=== PATIENT | female | born 1970 | race Caucasian/White ===

== ENCOUNTER → 2023-03-24 10:01 | Outpatient (CLI) | payer BC, SELFPAY ==
--- NOTE | 2023-03-24 10:13 | US_ITS ---
PROCEDURE: US TRANSVAGINAL CLINICAL INDICATION: postmenopausal bleeding COMPARISON: No exams were available for comparison FINDINGS: Transvaginal sonographic images of the pelvis were obtained. UTERUS: 10.0 cm x 7.3 cmx 5.4 cm with a combined endometrial thickness of 9.2mm. There are multiple nabothian cysts within the cervix. There are at least 14 separate cysts. The largest measures 1.1 cm. A large fundal fibroid is seen with degenerative changes. It measures 5.0 cm x 4.6 cm by 5.5 cm. There is a smaller fibroid on the right side of the uterus measuring 1.7 cm x 1.3 cm x 1. 8 cm. LEFT OVARY: 2.6 cm x1.4 cmx1.1cm with a volume of 2ml. RIGHT OVARY: 3.9 cmx 3.8 cmx3.1 cm with a volume of 24.2ml. There is a follicle measuring 3.0 cm x 1.2 cm x 2.7 cm. There is trace fluid around the right ovary. Both ovaries are seen and appear normal. Doppler flow to both ovaries are seen. There is no fluid in the cul-de-sac. IMPRESSION: 1. Uterus is anteverted and enlarged with a fibroid. The fibroid measures 5.5 cm. There is a 2nd small right-sided fibroid measuring 1.8 cm. 2. Both ovaries are seen and appear normal. There is a 3.0 cm follicle in the right ovary. 3. No fluid in the cul-de-sac but a small amount of fluid around the right ovary. Dictated by: Riki Lyn MD 03/24/2023 13:18 Riki Lyn MD in OV 03/24/2023 13:18
== END ==
PROVIDERS: PCP Family Medicine; Visit Provider Obstetrics & Gynecology
DX: N95.0 Postmenopausal bleeding (principal)
CPT/HCPCS: 76830

== ENCOUNTER → 2023-04-05 15:49 | Outpatient (CLI) | payer BC, SELFPAY ==
[2023-04-05 16:58] LABS: Alanine Aminotransferase 36 U/L (12-78); Albumin Level 4.6 g/dl (3.5-5.0); Albumin/Globulin Ratio 1.4 (1.1-1.8); Alkaline Phosphatase 65 U/L (38-126); Anion Gap 11.7 mEq/L (5-15); Aspartate Amino Transferase 39 U/L (14-36); Bilirubin,Total 0.5 mg/dl (0.2-1.3); Blood Urea Nitrogen 12 mg/dl (7-17); Calcium 9.3 mg/dl (8.4-10.2); Carbon Dioxide 27 mmol/L (22.0-30.0); Chloride 101 mmol/L (98-107); Estimated Glomerular Filt Rate 66 ml/min (>60); GFR (African American) 80 ML/MIN (>60); Globulin 3.4 g/dL (1.3-3.2); Glucose 86 mg/dl (74-100); Potassium 3.7 mmoL/L (3.5-5.1); Sodium 136 mmol/L (136-145)
[2023-04-05 17:12] LABS: Basophils % 0.4 % (0.1-2.0); Eosinophils # 0.3 K/mm3 (0.0-0.4); Eosinophils % 3.8 % (0.1-12.0); Hematocrit 43.4 % (37.0-47.0); Lymphocytes # 1.8 K/mm3 (0.7-4.5); Lymphocytes % 21.5 % (10-50); Mean Corpuscular HGB Conc 34.5 g/dL (31.8-35.4); Mean Corpuscular Hemoglobin 30.7 pg (27.0-31.2); Mean Platelet Volume 8.2 fl (7.4-10.4); Monocytes # 0.5 K/mm3 (0.1-1.0); Monocytes % 6.2 % (1.7-9.3); Neutrophils # 5.6 K/mm3 (1.8-7.8); Neutrophils % 68.2 % (37.0-80.0); Platelet Count 266 K/mm3 (142-424); Red Blood Count 4.88 M/mm3 (4.20-5.40); Red Cell Distribution Width 14.1 % (11.5-17.5); White Blood Count 8.3 K/mm3 (4.8-10.8)
[2023-04-05 17:19] LABS: HCG,Quantitative < 2 mIU/ml (0-5.42)
== END ==
PROVIDERS: PCP Family Medicine; Visit Provider Obstetrics & Gynecology
DX: N95.0 Postmenopausal bleeding (principal)
CPT/HCPCS: 36415; 80053; 84702; 85025

== ENCOUNTER 2023-04-07 10:08 | Day surgery (SDC) | payer BC, SELFPAY ==
[2023-04-05 16:38] VITALS: BMI 29.7
[2023-04-07] VITALS (7 sets, daily range): BP systolic 107–134; BP diastolic 65–84; PULSE 73–95; RESP 16–19; TEMP 36.1–36.8; O2SAT 92–100
--- NOTE | 2023-04-07 12:02 | EXP.ANES.CKL ---
[facility] Disclaimer: The information contained in this section may have been updated after the patient was seen, as this information can be updated by other users. Medical History Hx of fracture of nose Hx of viral meningitis Surgical History Hx of breast augmentation Hx of hernia repair Hx of prior ablation treatment Family History Mother Thyroid disorder Social History Smoking Status: Never smoker alcohol intake: never substance use type: denies use current occupational status: employed Travel in the last 8 weeks: None [facility] Anesthesia Checklist Patient Identification Patient Identification: Arm Band and Verbal (Name & ) Structural Data Admitted From: Home Planned Operative Procedure/s: Hyst/D & C Consent for Planned Operative Procedure(s) Verified: Yes NPO Status Verified Time NPO: 00:00 Additional verifications Anesthesia Reactions: No Hx Blood Transfusions: No Blood Transfusion Reaction: No Airway Assessment Mallampati Score:: Class I C-Spine Mobility Assessed: Yes TMJ Mobility Assessed: Yes Dentition: Good Dentition Neurological Assessment Level of Consciousness: Awake Hx Seizures: No Numbness or tingling in extremities: No Anesthesia Plan Anesthesia Risk discussed: Yes Anesthesia Plan: Verified ASA Class: I Anesthesia Type: MAC
--- NOTE | 2023-04-07 13:11 | EXP.OP.NOTE ---
Date of procedure: 04/07/23 Pre-op Diagnosis:: 1. Postmenopausal bleeding 2. Fibroid uterus 3. Thickened endometrial stripe Post-op Diagnosis:: 1. Postmenopausal bleeding 2. Fibroid uterus 3. Thickened endometrial stripe Procedure performed:: Hysteroscopy and dilation Surgeon:: Merry Delgadillo DO DECORATING EQUIPMENT SETTER:: Jessa Land Anesthesia: GETA Estimated blood loss (mL): 25 Operative findings:: Findings: -EUA revealed an 10-week anteverted uterus with irregular contour. Grade 3 apical prolapse. No appreciable anterior or posterior compartment prolapse. -Hysteroscopy revealed a very scarred cervical canal secondary to a history of an ablation. Operative note:: The patient was taken back to the OR where general anesthesia was obtained.? She was placed in the dorsal lithotomy position using yellow fin stirrups and sterilely prepped and draped in the usual fashion.? An in and out catheter was used to drain her bladder.? A timeout was performed.? A weighted speculum was used to visualize this cervix, a single-tooth tenaculum was applied to the anterior lip of the cervix. The cervix was dilated to allow entry to the ectocervix and hydrodisection was used to get the scope the rest of the way into the passage. The hysterscope was inserted but the uterine cavity assess was not obtained. I moved the single-tooth tenaculum to the posterior lip of the cervix. I again attempted to dilate the cervical os. Hysteroscope was reinserted and it was suspected that a false passage was made. The hysteroscope was removed and the cervical os was visualized and noted to be hemostatic. There was however bleeding on the posterior lip of the ectocervix. Pressure and chemical cautery were attempted and the area continues to bleed. This was made hemostatic with a [id number] 0 Vicryl. At the conclusion of the procedure there was a fluid deficit of 1200mLs. However there was copious amounts of fluid that was under the patient's bottom and soaking through the table as well as on the floor. All instruments were removed from the vagina.? All counts were correct, per nursing.? This concluded the procedure, the patient was awakened from anesthesia, and transferred to the PACU in stable condition. Patient will follow-up in 1 week to discuss options on how to proceed. Condition: stable Disposition: PACU Specimens:: None Complications:: None
== END 2023-04-07 13:41 | disposition home or self-care (01) ==
PROVIDERS: PCP Family Medicine; Visit Provider Obstetrics & Gynecology
PROC: (CPT 58558; principal; 2023-04-07 11:45)
DX: N95.0 Postmenopausal bleeding (principal); D25.9 Leiomyoma of uterus, unspecified; N81.3 Complete uterovaginal prolapse; T88.8XXA Other specified complications of surgical and medical care, not elsewhere classified, initial encounter
CPT/HCPCS: 58558; 96374

== ENCOUNTER 2023-05-26 16:31 | Outpatient (CLI) | payer BC, SELFPAY ==
[2023-05-26 16:59] LABS: Basophils # 0.1 K/mm3 (0-0.2); Eosinophils # 0.4 K/mm3 (0.0-0.4); Hematocrit 45.4 % (37.0-47.0); Hemoglobin 15.3 g/dL (12.2-16.2); Lymphocytes # 1.7 K/mm3 (0.7-4.5); Lymphocytes % 20.9 % (10-50); Mean Corpuscular HGB Conc 33.8 g/dL (31.8-35.4); Mean Corpuscular Hemoglobin 30.7 pg (27.0-31.2); Mean Corpuscular Volume 90.8 fl (81-99); Mean Platelet Volume 8.1 fl (7.4-10.4); Monocytes # 0.5 K/mm3 (0.1-1.0); Monocytes % 5.6 % (1.7-9.3); Neutrophils # 5.5 K/mm3 (1.8-7.8); Neutrophils % 67.6 % (37.0-80.0); Platelet Count 289 K/mm3 (142-424); White Blood Count 8.1 K/mm3 (4.8-10.8)
[2023-05-26 17:58] LABS: Chloride 100 mmol/L (98-107)
[2023-05-26 17:59] LABS: Sodium 138 mmol/L (136-145)
[2023-05-26 18:01] LABS: Alanine Aminotransferase 41 U/L (12-78); Aspartate Amino Transferase 43 U/L (14-36); Blood Urea Nitrogen 18 mg/dl (7-17); Estimated Glomerular Filt Rate 65 ml/min (>60); GFR (African American) 79 ML/MIN (>60)
[2023-05-26 18:02] LABS: Albumin Level 4.4 g/dl (3.5-5.0); Albumin/Globulin Ratio 1.4 (1.1-1.8); Alkaline Phosphatase 59 U/L (38-126); Bilirubin,Total 0.5 mg/dl (0.2-1.3); Calcium 9.3 mg/dl (8.4-10.2); Carbon Dioxide 30 mmol/L (22.0-30.0); Globulin 3.2 g/dL (1.3-3.2); Glucose 86 mg/dl (74-100); Total Protein,Serum 7.6 g/dl (6.3-8.2)
[2023-05-26 18:20] LABS: HCG,Quantitative < 2 mIU/ml (0-5.42)
== END 2023-05-26 23:59 ==
LOC: LAB 16:32
PROVIDERS: PCP Family Medicine; Visit Provider Obstetrics & Gynecology
DX: N95.0 Postmenopausal bleeding (principal)
CPT/HCPCS: 36415; 80053; 84702; 85025; 86850

== ENCOUNTER 2023-06-01 08:16 | Observation (INO) | payer BC, SELFPAY ==
[2023-06-01] VITALS (23 sets, daily range): BP systolic 95–135; BP diastolic 52–81; PULSE 62–92; RESP 12–20; TEMP 36.2–43; O2SAT 91–99
--- NOTE | 2023-06-01 08:39 | P.PNANES_ITS ---
[facility] Disclaimer: The information contained in this section may have been updated after the patient was seen, as this information can be updated by other users. Medical History Hx of fracture of nose Hx of viral meningitis Surgical History History of hysteroscopy Hx of breast augmentation Hx of hernia repair Hx of prior ablation treatment Family History Mother Thyroid disorder Social History Smoking Status: Never smoker alcohol intake: never substance use type: denies use current occupational status: employed Travel in the last 8 weeks: None [facility] Anesthesia Checklist Patient Identification Patient Identification: Arm Band and Verbal (Name & ) Structural Data Admitted From: Home Planned Operative Procedure/s: Hysterectomy Consent for Planned Operative Procedure(s) Verified: Yes NPO Status Verified Time NPO: 00:00 Chart Verification Results Verified: HCG Additional verifications Anesthesia Reactions: No Hx Blood Transfusions: No Blood Transfusion Reaction: No Airway Assessment Mallampati Score:: Class II C-Spine Mobility Assessed: Yes TMJ Mobility Assessed: Yes Dentition: Good Dentition Neurological Assessment Level of Consciousness: Awake Hx Seizures: No Numbness or tingling in extremities: No Anesthesia Plan Anesthesia Risk discussed: Yes Anesthesia Plan: Verified ASA Class: II Anesthesia Type: General
[2023-06-01] MEDS: LACTATED RINGERS 1000ML 1,000 ML 100 ML IV (08:45)
[2023-06-01] MEDS: CEFAZOLIN SODIUM 1 GM in 0.9 % SODIUM CHLORIDE 50 ML IV (10:08)
[2023-06-01] MEDS: LIDOCAINE 1% W/EPI 1:100,000 20ML VIAL 20 ML (10:51)
[2023-06-01] MEDS: METHYLENE BLUE 0.5% 10ML AMPULE 50 MG IV (10:51)
[2023-06-01] MEDS: BUPIVACAINE 0.5% W/EPI 1:200,000 30ML VIAL 30 ML IJ (10:52)
--- NOTE | 2023-06-01 13:18 | P.OP_ITS ---
Date of procedure: 06/01/23 Pre-op Diagnosis:: 1. Postmenopausal bleeding 2. Fibroid uterus 3. Hysteroscopy D&C 4. History of endometrial ablation Post-op Diagnosis:: 1. Postmenopausal bleeding 2. Fibroid uterus 3. Hysteroscopy D&C 4. History of endometrial ablation Procedure performed:: 1. Laparoscopic assisted vaginal hysterectomy 2. Bilateral salpingo-oophorectomy 3. Sibley culdoplasty 4. Cystoscopy Surgeon:: Merry Delgadillo DO Life Skills Teacher(s):: Riki Lyn MD GROUP EXERCISE CLASS INSTRUCTOR:: Other (Kam Costello) Anesthesia: GETA Estimated blood loss (mL): 100 Operative findings:: Uterine EUA was significant for 8wk size uterus with irregular borders at the fundus. Grade 3 uterine descent was appreciated. No gross adnexal masses were appreciated. Laparoscopic exam revealed normal anatomy.? There was noted to be a large fibroid uterus. No ovarian masses noted. No bowel injuries on entry. Cystoscopy revealed brisk flow from both ureters Operative note:: Pt was taken back to the OR where GETA was obtained without difficulty. SCDs were placed and found to be working. The patient was placed in dorsal lithotomy position using yellow fin stirrups. The vagina and abdomen was prepped and draped in the normal sterile fashion. An in and out catheter was used to drain the bladder and methylene blue was instilled. Weighted speculum was inserted into the vagina to visualize the cervix. A single tooth tenaculum was used to grasp the anterior lip of the cervix and an acorn uterine manipulator was placed. Top gloves were removed and attention was turned to the abdominal portion.? Local anesthetic with epinephrine was injected infraumbilically, an 11mm infraumbilical incision was made sharply. Direct entry into the abdominal cavity was obtained with laparoscopic visualization. A intraabdominal pressure of 6mmHg was observed and CO2 gas was insufflated to create a pneumoperitoneum to a pressure of 15mmHg. The patient was placed in Trendelenburg to facilitate moving the bowel out of the operative field. A second 11mm incision was made to the left, lateral to the rectus muscles with attention to avoid vasculature. Trocar introduced under direct visualization. This process was repeated on the right. Brief abdominal exam revealed normal anatomy as described above. The left fallopian tube was grasped at the fimbriated end. The ureters were visualized bi laterally and noted to be distal from the operative field. The LigaSure coagulation device was inserted and used to clamp, coagulate, and transect the infundibulopelvic ligament. At this time the Ovary was elevated and the ureter was again noted to be distal from the operative field. The mesosalpinx was followed to the round ligament and fulgurated with the Enseal. The round and broad ligament were serially clamped, fulgurated and transected, with attention given to stay proximal to the uterine body. The anterior and posterior leaflet of the broad ligament were and the anterior broad ligament dissection was carried out to complete a bladder flap to the midline. Attention turned to the right adnexa, fimbriated end of the fallopian tube grasped and elevated. Ureter visualized peristalsing and noted to be distal from the operative field. The IP ligament was grasped, coagulated and transected and the process listed above was repeated. The bladder flap was connected in the middle with careful dissection. The bladder flap bilaterally was created sharply with minimal use of electrocautery to avoid bladder injury. The posterior leaflet of the broad ligament was taken down bilaterally and the uterine vessels were skeletonized. The uterines were coagulated multiple times and the uterus was noted to anil. The pedicles were reexamined and noted to be hemostatic. Attention was turned vaginally, a weighted speculum and Wellington retractor were used to identify the cervix. Two Red tenaculums were used to grasp the anterior and posterior lip of the cervix. 20mL of a solution made up of 0.5% Marcaine with epinephrine injected circumferentially around the cervix. Outward traction was applied to the cervix and a scalpel was used to make a circumferential colpotomy at the cervicovaginal junction. The incision was carried down to the paracervical fascia allowing the cervix to separate from the vaginal mucosa.? Pickups and Rodríguez scissors were used to initiate and complete dissection into the posterior colpotomy. A long weighted Vega speculum was placed in the posterior colpotomy. The uterosacral ligaments were grasped with Z clamps, cut and suture ligated bilaterally. These were tagged to be incorporated into the vaginal cuff at a later time. Attention was turned to the anterior edge. Pickups and Metzenbaum scissors were used to initiate and complete dissection into the anterior colpotomy. A Strong retractor was placed in the anterior colpotomy. A Nisha clamp was used to slide off the uterus, remaining proximal, clamp, cut and tied with 0 Vicryl the remaining attachments of the cardinal ligaments along with the lower branches of the uterine vessels were clamped, fulgurated, and transected bilaterally.? The uterus, fallopian tubes, and ovaries were noted to be free of any other adhesions and was removed. The pedicals were inspected bilaterally and there was a small amount of bleeding noted near the left uterosacral ligament. This was grasped with a Winifred and suture ligated to be made hemostatic. A moist lap sponge was placed vaginally to retract the bowel. The posterior peritoneum was fixed to the posterior vaginal cuff with a running locking stitch. 0-PDS was used to place a Sibley stitch for the culdoplasty, incorporating the bilateral uterosacral ligaments. The anterior peritoneum was grasped with an Rose clamp and pursestringed closed. The vaginal cuff was then closed with 0 Vicryl in a running locking fashion. Sibley culdoplasty was tied to suspend the apex of the vagina. Hemostasis was noted. After changing gloves, the pneumoperitoneum was reestablished, laparoscope was placed and inspection of the cuff. Irrigation of the surgical site and suction reveal hemostasis, images obtained. Brief abdominal survey revealed a normal appearing liver and abdomen, except for previous described pelvic adhesions. Pedicals and cuff reinspected and noted to be hemostatic.? The abdominal incisions were closed with a deep single interrupted 0 Vicryl followed by a subcuticular 4-0 Monocryl and Dermabond was placed over the incision. Cystoscopy: The patient was removed from Trendelenburg. A 70degree cystoscope was inserted into the urethra. The bladder was distended with sterile water. The quintanilla of the bladder were inspected and noted to be intact, free of any sutures, gross masses or abnormal vasculature. Air bubble was noted at the dome of the bladder. Ureteral flow was immediately noted bilaterally. Sponge, instrument and needle counts were correct x3, per nursing. Condition: stable Disposition: floor Specimens:: Uterine body, cervix, bilateral fallopian tubes and ovaries Complications:: None
[2023-06-01] MEDS: MORPHINE 2MG/ML SYRINGE 2 MG IV ×2 (13:36→13:53)
[2023-06-01] MEDS: MEPERIDINE 25MG/ML 1ML SYRINGE 25 MG IV (13:47)
[2023-06-01] MEDS: ESTRADIOL VALERATE 20 MG/ML VIAL IM (13:48)
[2023-06-01] MEDS: LACTATED RINGERS 1000ML 1,000 ML 125 ML IV ×2 (14:20→22:50)
[2023-06-01] MEDS: KETOROLAC 30MG/ML VIAL 30 MG IV ×2 (14:20→21:03)
[2023-06-01] MEDS: ACETAMINOPHEN 500MG TAB 1000 MG PO ×2 (14:21→21:02)
[2023-06-01] MEDS: HYDROMORPHONE 2MG/ML SYRINGE 1 MG IV ×2 (15:05→22:15)
--- NOTE | 2023-06-01 17:44 | EXP.HP ---
History of Present Illness *Admission Date: 06/01/23 *Reason for visit:: hysterectomy *History of present illness: Shannon Love is a 52-year-old G2, P2 presenting today for a laparoscopic assisted vaginal hysterectomy with bilateral salpingo-oophorectomy, Sibley culdoplasty, and cystoscopy. -Secondary to a history of postmenopausal bleeding. 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 -No known drug allergies -Current medications include Unisom and a diuretic as needed. Patient states that she only uses the diuretic typically around with her normal menstrual cycle would be as she gets bloated and swollen. She has went to a full 12 months without menses and presented originally for vaginal bleeding after intercourse States that she has had an abnormal Pap smear. Previously reported no abnormal Pap smears but she remember that Dr. Celestin did something and she thinks that it was secondary to an abnormal Pap smear [facility] Disclaimer: The information contained in this section may have been updated after the patient was seen, as this information can be updated by other users. Medical History Hx of fracture of nose Hx of viral meningitis Surgical History History of hysteroscopy Hx of breast augmentation Hx of hernia repair Hx of prior ablation treatment Family History Mother Thyroid disorder Social History Smoking Status: Never smoker alcohol intake: never substance use type: denies use current occupational status: employed Travel in the last 8 weeks: None Review of Systems Review of Systems Review of systems (narrative): Const: Denies headaches, fever/chills, weakness Eyes: Denies change in vision Cardiorespiratory: Denies chest pain, shortness of breath, and cough GI: Denies abdominal pain, change in BM, nausea, vomiting, constipation, diarrhea : + PMB; denies pelvic pain, genital lesions, vaginal itching and odor; denies leakage of urine, urinary urgency, frequency, dysuria and hematuria. Patient denies any episodes of incontinence to include stress urinary incontinence Denies depression and anxiety Denies change in libido *Cardiovascular Cardiovascular: Reports system reviewed and no additional complaints, except as documented *Respiratory Respiratory: Reports system reviewed and no additional complaints, except as documented *Gastrointestinal Gastrointestinal: Reports system reviewed and no additional complaints, except as documented *Genitourinary Genitourinary: Reports system reviewed and no additional complaints, except as documented *Musculoskeletal Musculoskeletal: Reports system reviewed and no additional complaints, except as documented *Neurologic Neurologic: Reports system reviewed and no additional complaints, except as documented Meds Home Medications and Allergies Home Medications Medication Instructions Recorded Confirmed Type doxylamine succinate 25 mg tablet 25 mg PO HSP PRN Sleep 03/24/23 06/01/23 History multivitamin 1 tab PO DAILY Supplement 06/01/23 06/01/23 History New Prescriptions to Start Prescriptions: Allergies Allergy/AdvReac Type Severity Reaction Status Date / Time No Known Allergies Allergy Verified 06/01/23 08:29 Exam Data for Last 24 hours Vital signs and Labs for Last 24 Hours: Temp Pulse Resp BP Pulse Ox O2 Del Method O2 Flow Rate 97.6 F 73 16 118/68 94 L Room Air 2 06/01/23 14:10 06/01/23 14:25 06/01/23 14:25 06/01/23 14:25 06/01/23 14:25 06/01/23 14:51 06/01/23 13:59 Laboratory Results - last 24 hr 06/01/23 08:40: Blood Type O Positive, Antibody Screen Negative I & O for Last 24 hours: Intake & Output 05/29/23 05/30/23 05/31/23 06/01/23 23:59 23:59 23:59 23:59 Weight 175 lb Constitutional Constitutional: no acute distress *Routine HEENT Exam Head: Present normocephalic Eye: Present EOMI and PERRL ENT: Present mucous membranes moist *Routine Neck Exam Neck: Present supple; Absent lymphadenopathy *Routine Respiratory Exam Respiratory: Present CTA bilaterally *Routine Cardiovascular Exam Cardiovascular: Present RRR *Routine Abdominal Exam Abdominal: Present soft and normoactive bowel sounds; Absent tenderness *Routine Rectal Exam Rectal:: deferred *Routine Genitalia Exam Genitalia:: deferred *Routine Extremities Exam Extremities: Absent cyanosis, clubbing or edema *Routine Skin Exam Skin: Present warm; Absent rash *Routine Neurological Exam Neurological: Present alert and oriented X3 Assessment and Plan *Assessment and plan (1) Postmenopausal bleeding: Status: Acute Category: Medical Code(s): N95.0 - Postmenopausal bleeding Plan We will proceed with a laparoscopic assisted vaginal hysterectomy, bilateral salpingo-oophorectomy, Sibley culdoplasty, and a cystoscopy. This surgery has already been scheduled. Discussed with the patient that she would remain inpatient for 1 night. -Attempted hysteroscopy with D&C. Unable to gain access to the uterine cavity secondary to history of an ablation. Discussed this with the patient and elected to proceed with hysterectomy for postmenopausal bleeding and to evaluate endometrial cavity. At this time the patient is not having bleeding -Transvaginal ultrasound: Uterus: 10 x 7.3 x 5.4 cm with an endometrial thickness of 9.2 mm. There is a large fundal fibroid with degenerative changes measuring 5 x 4.6 x 5.5 cm and a smaller fibroid measuring 1.7 x 1.3 x 1.8 cm Cervix: Several nabothian cysts within the cervix, at least 14 Ovaries: Appear normal with Doppler flow and no free fluid in the cul-de-sac -Preoperative labs are ordered -Patient was given preop appointment and surgery date and time -Reviewed the risk benefits and alternatives to proceeding with hysterectomy. Discussed the risk of bleeding, infection, and injury to the surrounding structures to include but not limited to the bowel, bladder, ureters, and neurovascular bundles. Discussed the postoperative risk of fistula formation. Patient consented to blood transfusion if deemed medically necessary. She has no known drug allergies and we will give her Ancef preoperatively. Discussed that if an injury were to recur we would repair it at the time of surgery but this could prolong her hospital stay and postoperative course. The patient understands that she will spend the night in the hospital and plans to return to work at 4 weeks but understands that it may take 6 to 8 weeks before she will be able to return to work. Follow-up at 2 weeks postoperatively Discussed HRT. Pt would like delestrogen in hospital and then the patch at post op visit.
[2023-06-01] MEDS: OXYCODONE 5MG IMMEDIATE RELEASE TABLET 5 MG PO (17:59)
[2023-06-02] MEDS: KETOROLAC 30MG/ML VIAL 30 MG IV ×2 (03:07→08:35)
[2023-06-02] MEDS: ACETAMINOPHEN 500MG TAB 1000 MG PO ×2 (03:07→08:43)
[2023-06-02 04:43] VITALS: BP 102/61; PULSE 65; RESP 16; TEMP 36.6; O2SAT 97
--- NOTE | 2023-06-02 04:44 | PC.NURSE ---
Patient has been sleeping and resting throughout the night. Reassessment completed. Lung sounds clear and respirations even and unlabored. Bowel sounds present and active X4. IV is infusing well and site is unremarkable. No complaints or needs voiced by patient. Patient encouraged to call for any assistance with ambulation or if she has any needs at all.
[2023-06-02] MEDS: OXYCODONE 5MG IMMEDIATE RELEASE TABLET 5 MG PO (06:25)
[2023-06-02 06:56] LABS: Basophils % 0.2 % (0.1-2.0); Eosinophils % 0.2 % (0.1-12.0); Hematocrit 35.7 % (37.0-47.0); Hemoglobin 12.2 g/dL (12.2-16.2); Lymphocytes # 1.1 K/mm3 (0.7-4.5); Lymphocytes % 6.7 % (10-50); Mean Corpuscular Hemoglobin 30.4 pg (27.0-31.2); Mean Corpuscular Volume 89.3 fl (81-99); Monocytes # 0.6 K/mm3 (0.1-1.0); Monocytes % 3.4 % (1.7-9.3); Neutrophils # 14.5 K/mm3 (1.8-7.8); Neutrophils % 89.5 % (37.0-80.0); Platelet Count 229 K/mm3 (142-424); White Blood Count 16.2 K/mm3 (4.8-10.8)
[2023-06-02 06:58] LABS: MANUAL DIFFERENTIAL MANUAL DIFFERENTIAL (MANUAL DIFF)
[2023-06-02 07:07] LABS: Alanine Aminotransferase 33 U/L (12-78); Albumin Level 3.1 g/dl (3.5-5.0); Albumin/Globulin Ratio 1.1 (1.1-1.8); Alkaline Phosphatase 47 U/L (38-126); Anion Gap 10.9 mEq/L (5-15); Aspartate Amino Transferase 35 U/L (14-36); Bilirubin,Total 0.6 mg/dl (0.2-1.3); Blood Urea Nitrogen 15 mg/dl (7-17); Calcium 7.7 mg/dl (8.4-10.2); Carbon Dioxide 25 mmol/L (22.0-30.0); Chloride 103 mmol/L (98-107); Creatinine Clearance Estimated 91 mL/min (50-200); Estimated Glomerular Filt Rate 65 ml/min (>60); GFR (African American) 79 ML/MIN (>60); Globulin 2.8 g/dL (1.3-3.2); Glucose 108 mg/dl (74-100); Potassium 3.9 mmoL/L (3.5-5.1); Sodium 135 mmol/L (136-145); Total Protein,Serum 5.9 g/dl (6.3-8.2)
--- NOTE | 2023-06-02 07:14 | P.PNANES_ITS ---
[facility] Anesthesia Record Part II Anesthesia Record Part II Discharge Time: 13:59 Destination: Obstetric PACU nurse assessment reviewed?: Yes Patient Condition:: Good Anesthesia Complications:: None Swallowing reflex intact?: Yes Airway Patency: Patent Cyanosis?: No Blood Pressure: 120/71 SaO2: 95 Respiratory Rate: 16 Pulse Rate: 82 Temperature: 97.6 F Mental Status: Alert & Oriented Pain level:: 2 Nausea and/or vomitting:: None Intake, IV Amount: 0 Hydration: Adequate
[2023-06-02 07:15] VITALS: BP 120/71; PULSE 82; RESP 16; TEMP 36.4; O2SAT 95
[2023-06-02 08:00] VITALS: BP 104/55; PULSE 56; RESP 18; TEMP 36.9; O2SAT 94
[2023-06-02 08:52] LABS: Lymphocytes % 9 % (10-50); Monocytes % 4 % (2-9); Neutrophils % 87 % (42-76); Total Cells Counted 100
[2023-06-02 08:53] LABS: Platelet Estimate Normal; RBC Morphology Normal
--- NOTE | 2023-06-02 09:52 | P.DS_ITS ---
General Admission date:: 06/01/23 Discharge date: 06/02/23 HPI HPI HPI: Shannon Love is a 52-year-old G2, P2 presenting today for a laparoscopic assisted vaginal hysterectomy with bilateral salpingo-oophorectomy, Sibley culdoplasty, and cystoscopy. -Secondary to a history of postmenopausal bleeding. 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 -No known drug allergies -Current medications include Unisom and a diuretic as needed. Patient states that she only uses the diuretic typically around with her normal menstrual cycle would be as she gets bloated and swollen. She has went to a full 12 months without menses and presented originally for vaginal bleeding after intercourse States that she has had an abnormal Pap smear. Previously reported no abnormal Pap smears but she remember that Dr. Celestin did something and she thinks that it was secondary to an abnormal Pap smear Hospital Course Hospital Course Hospital Course: Shannon Love is a 53yo postop day #1 from laparoscopic assisted vaginal hysterectomy with bilateral salpingo-oophorectomy. The patient is doing very well. Reports that her pain is much better controlled. She had a dose of Delestrogen in the PACU. She is ambulating, voiding, and tolerating p.o. without difficulty or dysuria. The patient desires discharge home today. Routine discharge instructions were reviewed with the patient and her partner in detail and the patient voiced understanding. She will follow-up in 1 to 2 weeks for a postoperative visit. Exam Data for Last 24 hours Vital signs and Labs for Last 24 Hours: Temp Pulse Resp BP Pulse Ox O2 Del Method O2 Flow Rate 98.4 F 56 L 18 104/55 L 94 L Room Air 2 06/02/23 08:00 06/02/23 08:00 06/02/23 08:00 06/02/23 08:00 06/02/23 08:00 06/02/23 08:00 06/01/23 13:59 Laboratory Results - last 24 hr 06/02/23 05:45: WBC 16.2 H, RBC 4.00 L, Hgb 12.2, Hct 35.7 L, MCV 89.3, MCH 30.4, MCHC 34.0, RDW 14.0, Plt Count 229, MPV 8.0, Neut % (Auto) 89.5 H, Lymph % (Auto) 6.7 L, [place] % (Auto) 3.4, Eos % (Auto) 0.2, Baso % (Auto) 0.2, Neut # (Auto) 14.5 H, Lymph # (Auto) 1.1, [place] # (Auto) 0.6, Eos # (Auto) 0.0, Baso # (Auto) 0.0, Total Counted 100, Neutrophils % (Manual) 87 H, Lymphocytes % (Manual) 9 L, Monocytes % (Manual) 4, Platelet Estimate Normal, RBC Morphology Normal, Sodium 135 L, Potassium 3.9, Chloride 103, Carbon Dioxide 25, Anion Gap 10.9, BUN 15, Creatinine 0.90, Estimated Creat Clear 91, Estimated GFR 65, Est GFR ( Amer) 79, Glucose 108 H, Calcium 7.7 L, Total Bilirubin 0.6, AST 35, ALT 33, Alkaline Phosphatase 47, Total Protein 5.9 L, Albumin 3.1 L, Globulin 2.8, Albumin/Globulin Ratio 1.1 I & O for Last 24 hours: Intake & Output 05/30/23 05/31/23 06/01/23 06/02/23 23:59 23:59 23:59 23:59 Intake Total 800 / 800 1144 / 1144 Output Total 150 / 150 200 / 200 Balance 650 / 650 944 / 944 Weight 175 lb Constitutional Constitutional: no acute distress *Routine HEENT Exam Head: Present normocephalic Eye: Present EOMI and PERRL ENT: Present mucous membranes moist *Routine Neck Exam Neck: Present supple; Absent lymphadenopathy *Routine Respiratory Exam Respiratory: Present CTA bilaterally *Routine Cardiovascular Exam Cardiovascular: Present RRR *Routine Abdominal Exam Abdominal: Present soft and normoactive bowel sounds; Absent tenderness *Routine Extremities Exam Extremities: Absent cyanosis, clubbing or edema *Routine Skin Exam Skin: Present warm; Absent rash Comments: Well-healing laparoscopic incisions. Covered with Dermabond. No oozing. No signs of infection, or cellulitis. *Routine Neurological Exam Neurological: Present alert and oriented X3 Results Data Completed and Pending Labs on day of discharge: Labs from last 24 hours 06/02/23 05:45 WBC 16.2 H RBC 4.00 L Hgb 12.2 Hct 35.7 L MCV 89.3 MCH 30.4 MCHC 34.0 RDW 14.0 Plt Count 229 MPV 8.0 Neut % (Auto) 89.5 H Lymph % (Auto) 6.7 L [place] % (Auto) 3.4 Eos % (Auto) 0.2 Baso % (Auto) 0.2 Neut # (Auto) 14.5 H Lymph # (Auto) 1.1 [place] # (Auto) 0.6 Eos # (Auto) 0.0 Baso # (Auto) 0.0 Total Counted 100 Neutrophils % (Manual) 87 H Lymphocytes % (Manual) 9 L Monocytes % (Manual) 4 Platelet Estimate Normal RBC Morphology Normal Sodium 135 L Potassium 3.9 Chloride 103 Carbon Dioxide 25 Anion Gap 10.9 BUN 15 Creatinine 0.90 Estimated Creat Clear 91 Estimated GFR 65 Est GFR ( Amer) 79 Glucose 108 H Calcium 7.7 L Total Bilirubin 0.6 AST 35 ALT 33 Alkaline Phosphatase 47 Total Protein 5.9 L Albumin 3.1 L Globulin 2.8 Albumin/Globulin Ratio 1.1 DS: Diagnosis Discharge Diagnosis (1) Postmenopausal bleeding: Status: Acute Code(s): N95.0 - Postmenopausal bleeding Problem details: Postop day #1 from an [facility] and [facility] -Vital signs are stable -Hemoglobin 15.3 > 12.2. Patient is asymptomatic and doing well. -EBL was approximately 100 mL -Follow-up in 1 to 2 weeks for a routine postoperative visit Meds Home Medications and Allergies Home Medications Medication Instructions Recorded Confirmed Type doxylamine succinate 25 mg tablet 25 mg PO HSP PRN Sleep 03/24/23 06/01/23 History multivitamin 1 tab PO DAILY Supplement 06/01/23 06/01/23 History acetaminophen 500 mg tablet 500 mg PO Q6H PRN fever #30 tabs 06/02/23 Rx ferrous sulfate 325 mg (65 mg 325 mg PO DAILY #30 tabs 06/02/23 Rx iron) tablet,delayed release ibuprofen 800 mg tablet 800 mg PO Q8H PRN pain #60 tabs 06/02/23 Rx oxycodone 5 mg tablet 5 mg PO Q8H PRN pain #15 tabs 06/02/23 Rx sennosides 8.6 mg tablet (Senna 8.6 mg PO BIDP PRN Constipation 06/02/23 Rx Lax) #60 tabs simethicone 125 mg tablet 125 mg PO DAILY PRN abdominal 06/02/23 Rx distention #60 tabs New Prescriptions to Start Prescriptions: acetaminophen Merry Delgadillo ferrous sulfate Merry Delgadillo ibuprofen Merry Delgadillo oxycodone Merry Delgadillo sennosides [Senna Lax] Merry Delgadillo simethicone Merry Delgadillo Allergies Allergy/AdvReac Type Severity Reaction Status Date / Time No Known Allergies Allergy Verified 06/01/23 08:29 Discharge Plan Disposition Patient Disposition: Home, Self-Care Follow up Plan Follow up with: Merry Delgadillo DO [Staff Physician] - 2 weeks Prescriptions/Medication Reconciliation: New acetaminophen 500 mg tablet 500 mg PO Q6H PRN (Reason: fever) Qty: 30 3RF ferrous sulfate 325 mg (65 mg iron) tablet,delayed release (DR/EC) 325 mg PO DAILY Qty: 30 3RF sennosides [Senna Lax] 8.6 mg Tablet 8.6 mg PO BIDP PRN (Reason: Constipation) Qty: 60 2RF ibuprofen 800 mg tablet 800 mg PO Q8H PRN (Reason: pain) Qty: 60 2RF simethicone 125 mg tablet 125 mg PO DAILY PRN (Reason: abdominal distention) Qty: 60 2RF oxycodone 5 mg tablet 5 mg PO Q8H PRN (Reason: pain) Qty: 15 0RF Continued doxylamine succinate 25 mg tablet 25 mg PO HSP PRN (Reason: Sleep) multivitamin Tablet 1 tab PO DAILY Problem Reconciliation Problems Reviewed?: Yes Patient Discharge Instructions ACTIVITY: Continue current activity and No heavy lifting DIET: continue same diet and regular diet Additional Instructions: Hysterectomy Discharge You had a laparoscopic assisted vaginal hysterectomy, bilateral salpingo- oophorectomy, Sibley culdoplasty, and cystoscopy. This means we removed your uterus, cervix, and both tubes and ovaries. The culdoplasty will help support the top part of your vagina and decrease her risk of prolapse in the future. We also used a camera to look in your bladder after the surgery and there were no problems with your bladder wall or ureters. There were no complications with your surgery. We removed a large, approximately 5 to 6 cm fibroid with your uterus during her surgery. I have called several medications in for you and they are detailed below as well as discharge instructions. If you have any questions, please call the office. You will follow-up in office for a postop visit at 1-2 weeks and at 6 weeks. At your 6-week postop appointment you will have a pelvic exam to ensure your cuff is healing well. Activity: - No lifting more than 10 lbs for 6 weeks. - No driving while you are taking narcotic pain medication. - You have 3 incisions on your abdomen that are closed with stitches and surgical glue. The glue should come off within 2 weeks. You can scrub gently in the shower Wound care - You have surgical glue covering your incision. This will come off on its own within 1-2 weeks - You have stitches under your skin which will dissolve over the next 4-6 weeks as your body heals - Keep your wound clean and dry, ok to wash with soap and water but pat thoroughly dry Medications: - Acetaminophen (Tylenol) for pain/discomfort. Please take 500 mg to 1000 mg of Tylenol every 4-6 hours for the first 2 to 3 days to keep your postoperative pain under control. - Ibuprofen (a nonsteroidal anti-inflammatory) for pain. Please take the ibuprofen scheduled for the first 2-3 days as this will help control your pain - Oxycodone (a narcotic pain medication) use the narcotic pain medication for breakthrough or severe pain. You will want to stop the narcotic pain medication first. Narcotic pain medication can be habit forming so please only use this medication if you need it. - Senna (a stool softener) use this medication for constipation as needed. Narcotics can increase your risk for constipation - Simethicone: a gas medication for bloating and gas pain you may experience in the next 1-2 weeks. Please call the office or return to the ER if you have any of the followin. bleeding more than 1 pad an hour for 2 hours 2. pain that does not respond to your narcotic pain medication 3. dizziness or lightheadedness such that you lose consciousness 4. abnormal discharge that looks like pus from your incisions Questions or concerns: It is my privilege to be your doctor. Please let me know if you have other questions or concerns. Merry Briseno DO [facility] Specialist [place], [place] [address] Providers Primary Care Provider: Cortez Handy Admharshil Provider: Merry Delgadillo Attending Provider: Merry Delgadillo
== END 2023-06-02 12:10 | disposition home or self-care (01) ==
LOC: OB 08:17
PROVIDERS: Admitting Provider Obstetrics & Gynecology; PCP Family Medicine; Visit Provider Obstetrics & Gynecology
PROC: (CPT 58552; principal; 2023-06-01 09:45)
DX: D25.9 Leiomyoma of uterus, unspecified (principal); N95.0 Postmenopausal bleeding
CPT/HCPCS: 58552; 57268; 52000; 36415; 80053; 85007; 85025; 86850; 96374; G0378; J2405